=== PATIENT | female | born 1980 | race Hispanic/Latino ===

== ENCOUNTER 2017-06-16 13:30 | Outpatient (CLI) | payer MEDICAID, OTHER ==
--- NOTE | 2017-06-16 14:10 | XRay Report ---
RIGHT HAND, 3 views: History: Right hand pain. The bony architecture is intact. Bony alignment is normal. No soft tissue abnormalities are seen. The joint spaces appear preserved. IMPRESSION: Normal right hand.
== END 2017-06-16 13:31 | disposition home or self-care (01) ==
LOC: SPVIMAG 13:30
PROVIDERS: ATTEND Orthopaedic Surgery Sports Medicine
DX: M79.644 Pain in right finger(s) (principal); M79.641 Pain in right hand